=== PATIENT | female | born 1965 | race Caucasian/White ===

== ENCOUNTER 2019-12-20 11:28 | Outpatient (REF) | payer OTHER, SELFPAY | END 2019-12-20 11:29 | disposition home or self-care (01) | LOC: HO.WFDLDS 11:28 | PROVIDERS: Visit Provider Internal Medicine | DX: Z20.828 Contact with and (suspected) exposure to other viral communicable diseases (principal) | CPT/HCPCS: C9803; U0003 ==

== ENCOUNTER 2020-01-24 11:25 | Outpatient (REF) | payer OTHER, SELFPAY | END 2020-01-24 11:26 | disposition home or self-care (01) | LOC: HO.WFDLNP 11:25 | PROVIDERS: Visit Provider Family Medicine | DX: Z20.828 Contact with and (suspected) exposure to other viral communicable diseases (principal) | CPT/HCPCS: U0003 ==